=== PATIENT | male | born 1960 | race Caucasian/White ===

== ENCOUNTER 2018-10-15 04:19 | Emergency (ER) | payer OTHER ==
[~2018-10-15] VITALS: Ht 180.3 cm; Wt 99.8 kg
--- NOTE | 2018-10-15 04:55 | NUR ---
at bedside for MSE
--- NOTE | 2018-10-15 05:05 | NUR ---
Called Rad. for CXR
--- NOTE | 2018-10-15 05:14 | NUR ---
Rac. tech. at bedside for CXR,
[2018-10-15] MEDS ORDERED: ALBUTEROL SULFATE 2.5 MG/3 ML NEBU NEB ONE (05:30)
[2018-10-15] MEDS ORDERED: IPRATROPIUM BROMIDE 0.5 MG/2.5 ML NEBU NEB ONE (05:30)
[2018-10-15] MEDS ORDERED: predniSONE 10 MG TABLET PO ONE (05:30)
[2018-10-15] MEDS ORDERED: predniSONE 20 MG TABLET ONE (05:36)
[2018-10-15] MEDS ORDERED: ALBUTEROL SULFATE 2.5 MG/3 ML NEBU ONE (05:36)
--- NOTE | 2018-10-15 05:36 | NUR ---
RT at bedside for breathing tx.,
[2018-10-15] MEDS ORDERED: IPRATROPIUM BROMIDE 0.5 MG/2.5 ML NEBU ONE (05:37)
--- NOTE | 2018-10-15 05:58 | NUR ---
Patient discharged to home in stable conditon. Written and verbal after care instructions given. Patient verbalizes understanding of instructions. Pt. d/c w/ prescription per MD order, d/c papers signed, all belongings w/ pt., ID band removed, ambulated off unit w/ steady gait, NAD
== END 2018-10-15 05:59 | disposition home or self-care (01) ==
LOC: ER 04:19
DX: J42 Unspecified chronic bronchitis (principal); F17.290 Nicotine dependence, other tobacco product, uncomplicated; F15.10 Other stimulant abuse, uncomplicated; Z71.6 Tobacco abuse counseling
CPT/HCPCS: 71045; 94640; 99283; 99406; J7512; A4663; J3590

== ENCOUNTER 2023-01-20 23:15 | Emergency (ER) | payer MEDICAID, OTHER ==
[~2023-01-20] VITALS: Ht 180.3 cm; Wt 99.8 kg
[2023-01-21] MEDS ORDERED: ASPI-1101 PO (01:05)
[2023-01-21] MEDS ORDERED: FURO-152 PO (01:05)
[2023-01-21] MEDS ORDERED: SACU1TAB PO (01:05)
[2023-01-21] MEDS ORDERED: CARV6.25 PO (01:05)
[2023-01-21] MEDS ORDERED: METF-440 PO (01:05)
[2023-01-21 01:25] VITALS: BP 139/90; TEMP 98.5; O2SAT 98
== END 2023-01-21 01:26 | disposition home or self-care (01) ==
LOC: ER 23:28
DX: E11.9 Type 2 diabetes mellitus without complications (principal); I11.0 Hypertensive heart disease with heart failure; I50.9 Heart failure, unspecified; F17.210 Nicotine dependence, cigarettes, uncomplicated; Z76.0 Encounter for issue of repeat prescription; Z71.6 Tobacco abuse counseling; Z79.82 Long term (current) use of aspirin; Z79.899 Other long term (current) drug therapy
CPT/HCPCS: A4606; A4663

== ENCOUNTER 2023-05-02 18:54 | Inpatient (IN) | payer OTHER ==
[~2023-05-02] VITALS: Ht 180.3 cm; Wt 113.4 kg
[~2023-05-02 18:54] MED LIST: ASPI-1101 PO; CARV6.25 PO; FURO-152 PO; METF-440 PO; SACU1TAB PO
[2023-05-02 22:26] LABS: LACTIC ACID 2.3 mmol/L (0.4-2.0); RED BLOOD CELL COUNT(AUTO) 6.07 MIL/uL (4.06-5.63); RED CELL DISTRIBUTION WIDTH 18.2 % (12.1-16.2)
[2023-05-02 22:30] LABS: ALANINE AMINOTRANSFERASE 32 U/L (16-63); ALBUMIN 3.1 g/dL (3.4-5.0); ALKALINE PHOSPHATASE 315 U/L (50-136); ASPARTATE AMINOTRANSFERASE 31 U/L (15-37); BILIRUBIN,DIRECT 1.7 mg/dL (0.0-0.2); BILIRUBIN,TOTAL 2.4 mg/dL (0.2-1.0); CALCIUM 8.7 mg/dL (8.5-10.1); CARBON DIOXIDE 27 mmol/L (21-32); CHLORIDE 96 mmol/L (98-107); CREATININE 1.3 mg/dL (0.6-1.3); GLUCOSE 364 mg/dL (74-106); NT-PRO BNP 4983 pg/mL (0-125); SODIUM SERUM 132 mmol/L (136-145); TOTAL PROTEIN, SERUM 7.2 g/dL (6.4-8.2); UREA NITROGEN, BLOOD 30 mg/dL (7-18)
[2023-05-02] MEDS ORDERED: CEFEPIME HCL 1 G in IV DEXTROSE 5% 50 ML IV ONE (22:30)
[2023-05-02] MEDS ORDERED: CEFEPIME HCL 1 G VIAL ONE (22:33)
[2023-05-02 22:39] LABS: BASOPHILS # (AUTO) 0.1 K/UL (0.0-0.2); BASOPHILS % (AUTO) 1.1 % (0.0-2.0); DIFFERENTIAL COMMENT 0; EOSINOPHILS % (AUTO) 0.4 % (0.0-7.0); HEMATOCRIT 48.5 % (36.7-47.1); HEMOGLOBIN 15.8 g/dL (12.5-16.3); LYMPHOCYTES # (AUTO) 1.2 K/uL (0.8-4.8); LYMPHOCYTES % (AUTO) 11.6 % (20.5-51.5); MEAN CORPUSCULAR HEMOGLOBIN 26.1 uug (23.8-33.4); MEAN CORPUSCULAR HGB CONC 33 g/dL (32.5-36.3); MEAN CORPUSCULAR VOLUME 79.9 fL (73.0-96.2); MONOCYTES # (AUTO) 0.7 K/uL (0.1-1.30); MONOCYTES % (AUTO) 6.6 % (0.0-11.0); NEUTROPHILS # (AUTO) 8.5 K/uL (1.8-8.9); NEUTROPHILS % (AUTO) 80.3 % (38.5-71.5); PLATELET COUNT (AUTO) 362 K/uL (152-348); WHITE BLOOD COUNT (AUTO) 10.6 K/uL (3.6-10.2)
[2023-05-02] MEDS ORDERED: FUROSEMIDE 40 MG/4 ML VIAL IV ONE (22:45)
[2023-05-02] MEDS ORDERED: FUROSEMIDE 40 MG/4 ML VIAL ONE (23:53)
[2023-05-03] MEDS ORDERED: ACETAMINOPHEN 325 MG TABLET PO PRN (01:15)
[2023-05-03] MEDS ORDERED: ONDANSETRON 4 MG/2 ML VIAL IV PRN (01:15)
[2023-05-03] MEDS ORDERED: DEXTROSE 50% 50 ML DISP.SYRIN IV PRN (01:15)
[2023-05-03] MEDS ORDERED: MAGNESIUM HYDROXIDE 30 ML LIQUID UDC PO PRN (01:15)
[2023-05-03] MEDS ORDERED: REMEDY ESSENTIAL ZINC PASTE 113 GM TP PRN (01:15)
[2023-05-03] MEDS ORDERED: CEFEPIME HCL 1 G VIAL ONE ×3 (05:53→21:36)
[2023-05-03] MEDS ORDERED: FUROSEMIDE 40 MG/4 ML VIAL ONE (05:54)
[2023-05-03] MEDS ORDERED: FUROSEMIDE 40 MG/4 ML VIAL IV ONE (06:00)
[2023-05-03] MEDS: CEFEPIME HCL 1 G in IV DEXTROSE 5% 50 ML IV SCH ×3 (06:07→22:13)
[2023-05-03] MEDS ORDERED: INSULIN REGULAR, HUMAN 300 UNIT/3 ML VIAL ONE (07:07)
[2023-05-03] MEDS: INSULIN REGULAR, HUMAN 300 UNIT/3 ML VIAL SQ PRN ×4 (07:13→20:43)
[2023-05-03] MEDS: BLOOD SUGAR DIAGNOSTIC 1 EACH STRIP VI SCH ×4 (07:37→20:35)
[2023-05-03 08:26] LABS: CALCIUM 8.5 mg/dL (8.5-10.1); CREATININE 1.1 mg/dL (0.6-1.3); POTASSIUM 3.4 mmol/L (3.5-5.1)
[2023-05-03] MEDS ORDERED: CARVEDILOL 6.25 MG TABLET ONE (09:10)
[2023-05-03] MEDS ORDERED: ASPIRIN EC 81 MG TABLET.DR PO ONE (09:10)
[2023-05-03] MEDS: CARVEDILOL 6.25 MG TABLET PO SCH ×2 (09:15→17:45)
[2023-05-03] MEDS: ASPIRIN EC 81 MG TABLET.DR PO SCH (09:15)
[2023-05-03 17:06] VITALS: BP 136/98; TEMP 97.4; O2SAT 96
[2023-05-03] MEDS: SACUBITRIL/VALSARTAN 24 MG-26 TABLET PO SCH (18:01)
[2023-05-03 20:00] VITALS: BP 108/68; TEMP 97.8; O2SAT 92
[2023-05-04] VITALS: BP 117/71; TEMP 97.6; O2SAT 96
[2023-05-04 04:00] VITALS: BP 114/71; TEMP 97.4; O2SAT 96
[2023-05-04] MEDS: CEFEPIME HCL 1 G in IV DEXTROSE 5% 50 ML IV SCH ×3 (05:36→22:57)
[2023-05-04] MEDS: BLOOD SUGAR DIAGNOSTIC 1 EACH STRIP VI SCH ×4 (06:23→20:43)
[2023-05-04 07:42] LABS: BASOPHILS # (AUTO) 0.1 K/UL (0.0-0.2); EOSINOPHILS # (AUTO) 0.2 K/uL (0.0-0.7); EOSINOPHILS % (AUTO) 1.8 % (0.0-7.0); HEMATOCRIT 43.4 % (36.7-47.1); HEMOGLOBIN 14.3 g/dL (12.5-16.3); LYMPHOCYTES % (AUTO) 10.3 % (20.5-51.5); MEAN CORPUSCULAR HEMOGLOBIN 26.1 uug (23.8-33.4); MEAN CORPUSCULAR HGB CONC 33 g/dL (32.5-36.3); MEAN CORPUSCULAR VOLUME 79.3 fL (73.0-96.2); MONOCYTES % (AUTO) 10.3 % (0.0-11.0); NEUTROPHILS # (AUTO) 7.2 K/uL (1.8-8.9); NEUTROPHILS % (AUTO) 76.6 % (38.5-71.5); PLATELET COUNT (AUTO) 300 K/uL (152-348); RED BLOOD CELL COUNT(AUTO) 5.48 MIL/uL (4.06-5.63); RED CELL DISTRIBUTION WIDTH 17.3 % (12.1-16.2); WHITE BLOOD COUNT (AUTO) 9.4 K/uL (3.6-10.2)
[2023-05-04 07:46] LABS: DIFFERENTIAL COMMENT 1
[2023-05-04 07:49] LABS: CREATININE 1.1 mg/dL (0.6-1.3); MAGNESIUM 1.6 mg/dL (1.8-2.4); POTASSIUM 3.7 mmol/L (3.5-5.1)
[2023-05-04 08:00] VITALS: BP 138/84; TEMP 97.6; O2SAT 98
[2023-05-04 08:28] LABS: CALCIUM 8.2 mg/dL (8.5-10.1)
[2023-05-04] MEDS: CARVEDILOL 6.25 MG TABLET PO SCH ×2 (09:44→16:32)
[2023-05-04] MEDS: ASPIRIN EC 81 MG TABLET.DR PO SCH (09:44)
[2023-05-04] MEDS: SACUBITRIL/VALSARTAN 24 MG-26 TABLET PO SCH ×2 (09:45→16:32)
[2023-05-04 11:35] VITALS: BP 147/78; TEMP 97.6; O2SAT 99
[2023-05-04] MEDS: INSULIN REGULAR, HUMAN 300 UNIT/3 ML VIAL SQ PRN ×3 (11:50→20:50)
[2023-05-04] MEDS ORDERED: MAGNESIUM OXIDE 400 MG TABLET PO ONE (12:45)
[2023-05-04 13:14] LABS: THYROID STIMULATING HORMONE 2.279 mIU/mL (0.358-3.740)
[2023-05-04 15:58] VITALS: BP 131/70; TEMP 97.8; O2SAT 96
[2023-05-04] MEDS: FUROSEMIDE 20 MG/2 ML VIAL IV SCH ×2 (16:32→20:43)
[2023-05-04 20:00] VITALS: BP 118/85; TEMP 97.8; O2SAT 94
[2023-05-05] VITALS: BP 128/78; TEMP 97.7; O2SAT 98
[2023-05-05 04:00] VITALS: BP 115/75; TEMP 97.8; O2SAT 94
[2023-05-05] MEDS: CEFEPIME HCL 1 G in IV DEXTROSE 5% 50 ML IV SCH ×3 (05:25→21:05)
[2023-05-05] MEDS: BLOOD SUGAR DIAGNOSTIC 1 EACH STRIP VI SCH ×4 (06:03→20:22)
[2023-05-05 07:39] LABS: BASOPHILS # (AUTO) 0.1 K/UL (0.0-0.2); EOSINOPHILS # (AUTO) 0.2 K/uL (0.0-0.7); EOSINOPHILS % (AUTO) 1.6 % (0.0-7.0); HEMATOCRIT 44.7 % (36.7-47.1); HEMOGLOBIN 14.7 g/dL (12.5-16.3); LYMPHOCYTES # (AUTO) 1.2 K/uL (0.8-4.8); LYMPHOCYTES % (AUTO) 12.9 % (20.5-51.5); MEAN CORPUSCULAR HEMOGLOBIN 26.2 uug (23.8-33.4); MEAN CORPUSCULAR HGB CONC 33 g/dL (32.5-36.3); MEAN CORPUSCULAR VOLUME 79.7 fL (73.0-96.2); MONOCYTES # (AUTO) 1.1 K/uL (0.1-1.30); MONOCYTES % (AUTO) 11.5 % (0.0-11.0); PLATELET COUNT (AUTO) 334 K/uL (152-348); RED BLOOD CELL COUNT(AUTO) 5.61 MIL/uL (4.06-5.63); RED CELL DISTRIBUTION WIDTH 17.8 % (12.1-16.2); WHITE BLOOD COUNT (AUTO) 9.6 K/uL (3.6-10.2)
[2023-05-05 07:56] LABS: ALBUMIN 2.6 g/dL (3.4-5.0); BILIRUBIN,TOTAL 1.4 mg/dL (0.2-1.0); CALCIUM 8.4 mg/dL (8.5-10.1); CREATININE 1.1 mg/dL (0.6-1.3); MAGNESIUM 1.8 mg/dL (1.8-2.4); PHOSPHOROUS 3.4 mg/dL (2.5-4.9); POTASSIUM 4.3 mmol/L (3.5-5.1); TOTAL PROTEIN, SERUM 6.5 g/dL (6.4-8.2)
[2023-05-05 08:03] LABS: DIFFERENTIAL COMMENT 1
[2023-05-05 08:30] VITALS: BP 134/98; TEMP 97.6; O2SAT 100
[2023-05-05] MEDS: ASPIRIN EC 81 MG TABLET.DR PO SCH (08:57)
[2023-05-05] MEDS: FUROSEMIDE 20 MG/2 ML VIAL IV SCH (08:58)
[2023-05-05] MEDS: CARVEDILOL 6.25 MG TABLET PO SCH ×2 (08:58→16:16)
[2023-05-05] MEDS: SACUBITRIL/VALSARTAN 24 MG-26 TABLET PO SCH ×2 (08:59→16:16)
[2023-05-05] MEDS: MUPIROCIN 2% OINT 22 GM TUBE TP SCH (08:59)
[2023-05-05 11:40] VITALS: BP 121/70; TEMP 97.2; O2SAT 94
[2023-05-05] MEDS: INSULIN REGULAR, HUMAN 300 UNIT/3 ML VIAL SQ PRN ×3 (11:53→22:13)
[2023-05-05 16:14] VITALS: BP 113/70; TEMP 97.9; O2SAT 99
[2023-05-05] MEDS: SPIRONOLACTONE 25 MG TABLET PO SCH (16:22)
[2023-05-05] MEDS: METFORMIN HCL 500 MG TABLET PO SCH (17:05)
[2023-05-05] MEDS: glipiZIDE 5 MG TABLET PO SCH (17:05)
[2023-05-05 20:00] VITALS: BP 112/58; TEMP 97.9; O2SAT 98
[2023-05-05] MEDS: FUROSEMIDE 40 MG/4 ML VIAL IVP SCH (20:58)
[2023-05-05] MEDS ORDERED: FUROSEMIDE 20 MG/2 ML VIAL IV SCH (21:00)
[2023-05-06] VITALS: BP 97/62; TEMP 98.2; O2SAT 95
[2023-05-06 04:00] VITALS: BP 120/81; TEMP 97.6; O2SAT 95
[2023-05-06] MEDS ORDERED: ALPRAZOLAM 0.5 MG TABLET PO ONE (04:30)
[2023-05-06] MEDS: CEFEPIME HCL 1 G in IV DEXTROSE 5% 50 ML IV SCH (04:48)
[2023-05-06] MEDS: BLOOD SUGAR DIAGNOSTIC 1 EACH STRIP VI SCH ×2 (06:14→11:31)
[2023-05-06] MEDS ORDERED: PANTOPRAZOLE SODIUM 40 MG TABLET.DR PO SCH (07:00)
[2023-05-06] MEDS: SACUBITRIL/VALSARTAN 24 MG-26 TABLET PO SCH (10:12)
[2023-05-06] MEDS: glipiZIDE 5 MG TABLET PO SCH (10:12)
[2023-05-06] MEDS: ASPIRIN EC 81 MG TABLET.DR PO SCH (10:12)
[2023-05-06] MEDS: METFORMIN HCL 500 MG TABLET PO SCH (10:12)
[2023-05-06] MEDS: SPIRONOLACTONE 25 MG TABLET PO SCH (10:12)
[2023-05-06] MEDS: FUROSEMIDE 40 MG/4 ML VIAL IVP SCH (10:12)
[2023-05-06] MEDS: MUPIROCIN 2% OINT 22 GM TUBE TP SCH (10:13)
[2023-05-06] MEDS: CARVEDILOL 6.25 MG TABLET PO SCH (10:13)
[2023-05-06] MEDS: INSULIN REGULAR, HUMAN 300 UNIT/3 ML VIAL SQ PRN (11:30)
[2023-05-06] MEDS ORDERED: FURO-151 PO (11:43)
[2023-05-06] MEDS ORDERED: GLIP5TAB13 PO (11:43)
[2023-05-06] MEDS ORDERED: METF-440 PO (11:43)
[2023-05-06] MEDS ORDERED: SPIR25TA PO (11:43)
[2023-05-06] MEDS ORDERED: DAPA5TAB PO (11:43)
[2023-05-06] MEDS ORDERED: SACU1TAB PO (11:43)
[2023-05-06 12:40] VITALS: BP 129/86; TEMP 97.7; O2SAT 97
== END 2023-05-06 13:50 | disposition home or self-care (01) | DRG 194 ==
LOC: ER 18:55 → TRANSITION 05-03 01:21 → TELE3 05-03 15:44
PROVIDERS: ADMIT Internal Medicine; ATTEND Internal Medicine
PROC: 05HY33Z Insertion of Infusion Device into Upper Vein, Percutaneous Approach (ICD-10-PCS; principal; 2023-05-03)
DX: I11.0 Hypertensive heart disease with heart failure (principal); J96.01 Acute respiratory failure with hypoxia; N17.0 Acute kidney failure with tubular necrosis; I50.41 Acute combined systolic (congestive) and diastolic (congestive) heart failure; I21.A1 Myocardial infarction type 2; E44.0 Moderate protein-calorie malnutrition; E87.1 Hypo-osmolality and hyponatremia; E11.42 Type 2 diabetes mellitus with diabetic polyneuropathy; E87.6 Hypokalemia; L85.3 Xerosis cutis; L84 Corns and callosities; Z91.199 Patient's noncompliance with other medical treatment and regimen due to unspecified reason; Z79.82 Long term (current) use of aspirin; E11.65 Type 2 diabetes mellitus with hyperglycemia; F17.210 Nicotine dependence, cigarettes, uncomplicated; F15.10 Other stimulant abuse, uncomplicated; Z79.84 Long term (current) use of oral hypoglycemic drugs; Z20.822 Contact with and (suspected) exposure to COVID-19; I42.7 Cardiomyopathy due to drug and external agent; S91.302A Unspecified open wound, left foot, initial encounter; X58.XXXA Exposure to other specified factors, initial encounter; Y93.9 Activity, unspecified; Y92.009 Unspecified place in unspecified non-institutional (private) residence as the place of occurrence of the external cause; E66.9 Obesity, unspecified; G89.29 Other chronic pain; Z68.34 Body mass index [BMI] 34.0-34.9, adult
CPT/HCPCS: 36415; 71045; 83605; 83735; 84100; 84443; 84484; 85025; 85730; 87040; 93005; 93307; A4606; A4663; G0378; J0692; J1815; J1940